=== PATIENT | female | born 1965 | race Caucasian/White ===

== ENCOUNTER 2022-01-02 10:10 | Emergency (ER) | payer MEDICAID, OTHER ==
[~2022-01-02] VITALS: Ht 152.4 cm; Wt 78.9 kg
[2022-01-02 10:20] VITALS: BP 179/97
--- NOTE | 2022-01-02 10:22 | NUR ---
PATIENT AMBULATED TO BED 4.
--- NOTE | 2022-01-02 10:23 | NUR ---
ASSUMED CARE OF PT AT THIS TIME.
--- NOTE | 2022-01-02 10:24 | NUR ---
56 Y/O FEMALE C/O ABD PAIN 02/06 DESCRIBES CRAMPING [id number]. PT STATES PAIN IS WORSE S/P EATING. DENIES RX PRIOR TO ARRIVAL. DENIES FEVER/CHILLS. DENIES N/V/D. DENIES PMH NKA
--- NOTE | 2022-01-02 11:27 | NUR ---
RESIDENTIAL AIDE AT PT BEDSIDE.
[2022-01-02 11:35] LABS: BASOPHILS % (AUTO) 0.3 % (0.0-2.0); EOSINOPHILS # (AUTO) 0.1 K/uL (0-0.4); EOSINOPHILS % (AUTO) 1.4 % (0.0-4.0); HEMATOCRIT 40.6 % (36-48); HEMOGLOBIN 13.6 g/dL (12.0-16.0); LYMPHOCYTES # (AUTO) 2.2 K/uL (2.5-16.5); LYMPHOCYTES % (AUTO) 41.6 % (20.5-51.1); MEAN CORPUSCULAR HEMOGLOBIN 25 pg (27-31); MEAN CORPUSCULAR HGB CONC 34 g/dL (33-37); MEAN CORPUSCULAR VOLUME 75.7 fL (80-94); MONOCYTES # (AUTO) 0.4 K/uL (0.8-1.0); MONOCYTES % (AUTO) 7.6 % (1.7-9.3); NEUTROPHILS # (AUTO) 2.6 K/uL (1.8-7.7); NEUTROPHILS % (AUTO) 49.1 % (42.2-75.2); PLATELET COUNT (AUTO) 193 K/uL (140-450); RED BLOOD CELL COUNT(AUTO) 5.35 MIL/uL (4.20-5.40); RED CELL DISTRIBUTION WIDTH 13.9 % (11.6-13.7); WHITE BLOOD COUNT (AUTO) 5.3 K/uL (4.8-10.8)
[2022-01-02 11:46] VITALS: BP 133/72
--- NOTE | 2022-01-02 11:47 | NUR ---
PT RESTING, ON NETWORK SUPPORT TECHNICIAN, VSS, WILL CONTINUE TO MONITOR.
[2022-01-02 11:52] LABS: APPEARANCE,URINE SL CLOUDY (CLEAR); BILIRUBIN,URINE NEGATIVE (NEGATIVE); BLOOD, URINE TRACE-I (NEGATIVE); COLOR,URINE BROWN (YELLOW); LEUKOCYTE ESTERASE ,URINE 1+ (NEGATIVE); NITRITE, URINE NEGATIVE (NEGATIVE); UGLUCOSE NEGATIVE (NEGATIVE)
[2022-01-02 12:04] LABS: ALBUMIN 3.4 g/dL (3.4-5.0); ANION GAP 10.3 (8-16); CARBON DIOXIDE 29.1 mmol/L (21-32); CREATININE 0.5 mg/dL (0.6-1.3); POTASSIUM 3.4 mmol/L (3.5-5.1); TOTAL BILIRUBIN 0.8 mg/dL (0.0-1.0)
[2022-01-02 12:04] LABS: OTHER CASTS, URINE None Seen /LPF (None Seen)
--- NOTE | 2022-01-02 12:12 | NUR ---
US TECH AT PT BEDSIDE.
[2022-01-02] MEDS ORDERED: CIPR500T4 PO (13:09)
[2022-01-02] MEDS ORDERED: IBUP-2213 PO (13:09)
[2022-01-02] MEDS ORDERED: LOPE-289 PO (13:24)
--- NOTE | 2022-01-02 13:38 | NUR ---
Patient discharged with v/s stable. Written and verbal after care instructions given and explained. Patient alert, oriented and verbalized understanding of instructions. Ambulatory with steady gait. All questions addressed prior to discharge. ID band removed. Patient advised to follow up with PMD. Rx of PREDNISONE AND IBUPROFEN given. Patient educated on indication of medication including possible reaction and side effects. Opportunity to ask questions provided and answered.
== END 2022-01-02 13:38 | disposition home or self-care (01) ==
LOC: MED 10:10
DX: K80.80 Other cholelithiasis without obstruction (principal); N39.0 Urinary tract infection, site not specified; Z98.890 Other specified postprocedural states
CPT/HCPCS: 36415; 76705; 80053; 81001; 81025; 83690; 85025; 87086; 99284; Q0092